=== PATIENT | female | born 1955 | race Caucasian/White ===

== ENCOUNTER 2023-11-26 14:58 | Outpatient (RCR) | payer OTHER ==
[~2023-11-26 14:58] MED LIST: ASPIRIN 81M81 MG/TA2 PO; ATARAX 25MG25 MG/TAB PO; CIPRO 500MG TA500 MG PO; CYMBALTA 30MG30 MG PO; FOLIC ACID 11 MG/TA1 PO; LIBRIUM 25M25 MG/CAP PO; LIPITOR 40MG TA40 MG PO; LOTREL 2.5 MG-11 CAP PO; MULTI VITAMINS1 TAB PO; NORCO 325 MG-51 TAB PO; OMNICEF 300MG300 MG PO; PEN-VEE K500 MG PO; PEPCID 20MG TAB20 MG PO; PHENERGAN12.5 MG/SU RC; PRINIVIL5 MG PO; THERAGRAN1 TA1 PO; THIAMINE 1100 MG/TAB PO; THIAMINE-100100 MG PO; ZANTAC 7575 MG PO; ZESTRIL 10MG10 MG PO; ZOFRAN 4MG T4 MG/TAB PO
== END 2023-12-10 | disposition home or self-care (01) ==
LOC: WSOH
DX: S00.93XD Contusion of unspecified part of head, subsequent encounter (principal); S80.01XD Contusion of right knee, subsequent encounter; M25.531 Pain in right wrist; I10 Essential (primary) hypertension; M19.90 Unspecified osteoarthritis, unspecified site; E78.00 Pure hypercholesterolemia, unspecified; Y99.0 Civilian activity done for income or pay